=== PATIENT | female | born 2000 | race African-American/Black ===

== ENCOUNTER 2018-07-04 19:59 | Emergency (ER) | payer MEDICAID ==
[~2018-07-04] VITALS: Ht 170.2 cm; Wt 81.8 kg
[2018-07-05 03:08] VITALS: BP 131/84
== END 2018-07-05 03:10 | disposition home or self-care (01) ==
LOC: ER 19:59
DX: S80.862A Insect bite (nonvenomous), left lower leg, initial encounter (principal); S80.861A Insect bite (nonvenomous), right lower leg, initial encounter; J45.909 Unspecified asthma, uncomplicated; W57.XXXA Bitten or stung by nonvenomous insect and other nonvenomous arthropods, initial encounter; Y93.89 Activity, other specified; Y92.89 Other specified places as the place of occurrence of the external cause; Y99.8 Other external cause status
CPT/HCPCS: 99283

== ENCOUNTER 2019-03-18 17:15 | Emergency (ER) | payer MEDICAID ==
[~2019-03-18] VITALS: Ht 172.7 cm; Wt 86.0 kg
[2019-03-18] MEDS ORDERED: TETRACAINE 0.5% OPHTH DROPS 4ML OP ONE (23:45)
[2019-03-18] MEDS ORDERED: FLUORESCEIN SODIUM 1MG/STRIP OP ONE (23:45)
[2019-03-19 00:35] VITALS: BP 148/89
== END 2019-03-19 00:30 | disposition home or self-care (01) ==
LOC: ER 17:15
DX: S05.02XA Injury of conjunctiva and corneal abrasion without foreign body, left eye, initial encounter (principal); J45.909 Unspecified asthma, uncomplicated; W50.4XXA Accidental scratch by another person, initial encounter; Y93.89 Activity, other specified; Y92.89 Other specified places as the place of occurrence of the external cause; Y99.8 Other external cause status
CPT/HCPCS: 99283